=== PATIENT | male | born 1990 | race Caucasian/White ===

== ENCOUNTER → 2017-02-19 | Outpatient (REF) | payer MEDICAID ==
[2017-02-19 13:05] LABS: ALBUMIN 4.3 GM/DL (3.2-5.2); ALBUMIN/GLOBULIN RATIO 1.48 (1.00-1.93); ALKALINE PHOSPHATASE 57 U/L (45-117); ALT/SGPT 38 U/L (12-78); ANION GAP 8 MEQ/L (8-16); AST/SGOT 25 U/L (15-37); BILIRUBIN,TOTAL 0.5 MG/DL (0.2-1.0); BLOOD UREA NITROGEN 15 MG/DL (7-18); CALCIUM LEVEL 9.5 MG/DL (8.5-10.1); CARBON DIOXIDE LEVEL 27 MEQ/L (21-32); CHLORIDE LEVEL 102 MEQ/L (98-107); CHOLESTEROL LEVEL 226 MG/DL (<200); CREATININE FOR GFR 0.86 MG/DL (0.70-1.30); GLOMERULAR FILTRATION RATE > 60.0 (>60); GLUCOSE, FASTING 86 MG/DL (70-105); POTASSIUM SERUM 4.4 MEQ/L (3.5-5.1); SODIUM LEVEL 137 MEQ/L (136-145); TOTAL PROTEIN 7.2 GM/DL (6.4-8.2); TRIGLYCERIDES LEVEL 299 MG/DL (<150)
== END ==
LOC: M SFHCCLAY 08:26
PROVIDERS: ATTEND Family Medicine
DX: E78.2 Mixed hyperlipidemia (principal)

== ENCOUNTER → 2017-05-22 | Outpatient (REF) | payer OTHER | LOC: M LAB REF 08:51 | PROVIDERS: ATTEND Physician Assistant | DX: J02.9 Acute pharyngitis, unspecified (principal) ==

== ENCOUNTER → 2017-08-02 | Outpatient (REF) | payer MEDICAID ==
[2017-08-02 12:22] LABS: ALBUMIN 3.9 GM/DL (3.2-5.2); ALBUMIN/GLOBULIN RATIO 1.34 (1.00-1.93); ALKALINE PHOSPHATASE 50 U/L (45-117); ALT/SGPT 50 U/L (12-78); ANION GAP 6 MEQ/L (8-16); AST/SGOT 26 U/L (15-37); BILIRUBIN,TOTAL 0.4 MG/DL (0.2-1.0); BLOOD UREA NITROGEN 12 MG/DL (7-18); CALCIUM LEVEL 9.3 MG/DL (8.5-10.1); CARBON DIOXIDE LEVEL 29 MEQ/L (21-32); CHLORIDE LEVEL 105 MEQ/L (98-107); CHOLESTEROL LEVEL 239 MG/DL (<200); CREATININE FOR GFR 0.85 MG/DL (0.70-1.30); GLOMERULAR FILTRATION RATE > 60.0 (>60); GLUCOSE, FASTING 94 MG/DL (70-105); POTASSIUM SERUM 4.5 MEQ/L (3.5-5.1); SODIUM LEVEL 140 MEQ/L (136-145); TOTAL PROTEIN 6.8 GM/DL (6.4-8.2); TRIGLYCERIDES LEVEL 203 MG/DL (<150)
== END ==
LOC: M SFHCCLAY 07:10
PROVIDERS: ATTEND Family Medicine
DX: E78.2 Mixed hyperlipidemia (principal)

== ENCOUNTER → 2019-04-13 | Outpatient (REF) | payer MEDICAID ==
[2019-04-13 13:17] LABS: HEMOGLOBIN A1c 5.3 %
== END ==
LOC: M SFHCCLAY 07:14
PROVIDERS: ATTEND Family Medicine
DX: R73.01 Impaired fasting glucose (principal)

== ENCOUNTER → 2019-10-31 | Outpatient (CLI) | payer OTHER ==
--- NOTE | 2019-10-31 13:59 | REP ---
MRI LUMBAR SPINE WITHOUT CONTRAST: HISTORY: Back pain. Comparison radiographs are from July 19, 2016. TECHNIQUE: Sagittal and axial T1- and T2-weighted scans are acquired in the usual fashion with and without fat saturation. Sequences include spin echo, turbo spin-echo, and STIR imaging sequences. MRI FINDINGS: There is straightening of the normal lumbar lordosis. Lumbar vertebral body heights are preserved. No bony destructive lesion is seen. The tip of the conus medullaris is normal in position in appearance at L1. No extra vertebral abnormality is observed. Axial and sagittal images taken at L5-S1 demonstrate a left posterior focal disc protrusion which effaces the left ventral margin of the thecal sac and compresses the exiting S1 root. There is mild facet hypertrophy. No other finding at L5-S1. At L4-5, there is a broad-based disc bulge and a central focal disc protrusion, which along with developmentally short pedicles and ligamentum flavum hypertrophy, contribute to moderate central canal stenosis. This effaces the CSF signal from the thecal sac at L4-5. The mid line AP dimension of the thecal sac at L4-5 is only 5.5 mm. There is mild bilateral neural foraminal narrowing due to foraminal disc bulges which are present bilaterally associated spurring. At L3-4, there is moderate diffuse disc bulging producing a moderate degree of central canal stenosis in combination with developmentally short pedicles and some ligamentum flavum hypertrophy. Foraminal disc bulging is seen contributes to mild neural foraminal narrowing. The mid line AP dimension of the thecal sac at L3-4 is 6.8 mm. At L2-L3, there is a moderate degree of diffuse disc bulging as well compressing the ventral margin of the thecal sac and contributing to mild central canal stenosis. The midline AP dimension of the thecal sac at L2-3 measures 9 mm. There is no significant foraminal narrowing at L2-3. At L1-2, there is broad-based left posterior focal disc protrusion effacing the left ventral margin of the thecal sac. No significant canal stenosis is seen. No neural foraminal narrowing is seen. IMPRESSION: Diffuse degenerative disc disease and spondylosis changes. Multilevel spinal stenosis most pronounced at L4-5 and L3-4. Disc protrusions are present at L1-2, L4-5, and L5-S1. Electronically Signed by Brandon Rojas MD 10/31/2019 04:12 P
--- NOTE | 2019-10-31 14:02 | REP ---
MRI THORACIC SPINE WITHOUT CONTRAST: HISTORY: Back pain. No comparison MRI study. Comparison radiographs are from July 19, 2016. TECHNIQUE: Sagittal and axial T1- and T2-weighted scans are acquired in the usual fashion with and without fat saturation. Sequences include spin echo, turbo spin-echo, and STIR imaging sequences. MRI FINDINGS: Thoracic vertebral body heights are preserved. Alignment is normal. Cortical and medullary bone signal intensity are felt to be normal. Artifactual decreased T1- and T2 signal intensity are seen in the T10 vertebral body. No bony destructive lesion is appreciated. Thoracic cord is normal in coarse, caliber and signal intensity on T1- and T2-weighted scans. No neural foraminal or cord compressive lesion is appreciated. There is a right posterior disc protrusion at the T3-4 level, which flattens the right ventral margin of the thoracic cord. Disc bulging is seen on the right and T4-5. There is a small right posterolateral disc protrusion at T6-7. This flattens the right ventral margin of the thecal sac. There is a small central focal disc protrusion at T8-9 which indents the ventral margin of the cord. There is a right posterior focal disc protrusion at T9-T10 which flattens the right ventral margin of the cord. Diffuse disc bulging is seen at T10-11. IMPRESSION: Degenerative disc disease with multiple focal disc protrusions in the thoracic spine as above. Electronically Signed by Brandon Rojas MD 10/31/2019 04:13 P
== END ==
LOC: M RAD 11:00
PROVIDERS: ATTEND Family Medicine
DX: M54.5 Low back pain (principal)

== ENCOUNTER → 2019-11-17 | Outpatient (CLI) | payer OTHER, SELFPAY ==
[~2019-11-17] MED LIST: E-Z-GAS II EFFERVESCENT PACKET (SODIUM BICARB./CITRIC ACID/SIMETHICONE) As Ordered ONE; E-Z-HD 98% w/w 340GM SUSP BTL As Ordered ONE; E-Z-PAQUE 96% w/w SUSP 176GM BTL As Ordered ONE; OMEP40CA97 PO; ROBA750T4 PO; TIZA4CAP PO
--- NOTE | 2019-11-17 16:00 | REP ---
Examination Requested: Esophagram Barium Swallow Reason For Exam/Comment: Dysphasia Esophagram: The procedure was performed JOLLY Colón, under the direct supervision of Dr. Walter. The images were reviewed with Dr. Walter. A single PA chest x-ray is submitted as a philosophy faculty member film. The superior mediastinal structures are midline. The heart size is within normal limits. The lungs are clear. Liquid barium and gas producing granules were given in the erect position as well as liquid barium in the prone oblique position, in order to perform a double contrast esophagram examination. Oral and pharyngeal stages of the examination were unremarkable. Esophageal transport is efficient and there is no esophagitis, stricture, or mucosal ring noted. There is no hiatal hernia noted. Gastroesophageal reflux was not visualized throughout the course of the exam. Impression: 1. Unremarkable esophagram. 0.3 minutes of fluoroscopy time was utilized for this procedure. Some fluoroscopic images are performed with last image hold technology. These images require no additional radiation. Reviewed by JOLLY Laughlin 11/17/2019 12:44 P Electronically Signed by Cortez Walter MD 11/17/2019 03:51 P
== END ==
LOC: M RAD 09:04
PROVIDERS: ATTEND Nurse Practitioner
DX: R13.10 Dysphagia, unspecified (principal)

== ENCOUNTER 2019-11-26 12:04 | Day surgery (SDC) | payer OTHER ==
[~2019-11-26] VITALS: Ht 188 cm; Wt 99.8 kg
[~2019-11-26 12:04] MED LIST changes: -E-Z-GAS II EFFERVESCENT PACKET (SODIUM BICARB./CITRIC ACID/SIMETHICONE) As Ordered ONE; -E-Z-HD 98% w/w 340GM SUSP BTL As Ordered ONE; -E-Z-PAQUE 96% w/w SUSP 176GM BTL As Ordered ONE; +NS 1,000 ML IV ONE
[2019-11-26] MEDS ORDERED: fentaNYL 100 MCG/2 ML INJECTION (J3010) As Ordered ONE (12:48)
[2019-11-26] MEDS ORDERED: propofoL 200 MG/20 ML VIAL As Ordered ONE (12:48)
[2019-11-26] MEDS ORDERED: LIDOCAINE 2% INJ 100 MG/5 ML SDV (FOR ANES.) As Ordered ONE (12:48)
--- NOTE | 2019-11-26 13:38 | ROOR ---
Patient Name: Juan Busby Procedure Date: 11/26/2019 1:17 PM Date of : 1990 Age: 29 Room: [facility] Gender: Male Note Status: Finalized Procedure: Upper GI endoscopy Indications: Suspected esophageal reflux Providers: Elpidio Jeffries Jr, MD Referring MD: Lizbeth BUSCH DO Requesting Provider: Medicines: Propofol per Anesthesia Complications: No immediate complications. Procedure: Pre-Anesthesia Assessment: - Prior to the procedure, a History and Physical was performed, and patient medications and allergies were reviewed. The patient is competent. The risks and benefits of the procedure and the sedation options and risks were discussed with the patient. All questions were answered and informed consent was obtained. Patient identification and proposed procedure were verified by the physician and the nurse in the pre-procedure area and in the procedure room. Mental Status Examination: alert and oriented. Airway Examination: normal oropharyngeal airway and neck mobility. Respiratory Examination: clear to auscultation. CV Examination: normal. ASA Grade Assessment: II - A patient with mild systemic disease. After reviewing the risks and benefits, the patient was deemed in satisfactory condition to undergo the procedure. The anesthesia plan was to use moderate sedation / analgesia (conscious sedation). Immediately prior to administration of medications, the patient was re-assessed for adequacy to receive sedatives. The heart rate, respiratory rate, oxygen saturations, blood pressure, adequacy of pulmonary ventilation, and response to care were monitored throughout the procedure. The physical status of the patient was re-assessed after the procedure. The Endoscope was introduced through the mouth, and advanced to the second part of duodenum. The upper GI endoscopy was accomplished without difficulty. The patient tolerated the procedure well. Findings: The upper third of the esophagus, middle third of the esophagus and lower third of the esophagus were normal. The cardia, gastric fundus, gastric body, greater curvature of the stomach, lesser curvature of the stomach, gastric antrum, prepyloric region of the stomach and pylorus were normal. Biopsies were taken with a cold forceps for histology. The duodenal bulb, first portion of the duodenum and second portion of the duodenum were normal. Impression: - Normal upper third of esophagus, middle third of esophagus and lower third of esophagus. - Normal cardia, gastric fundus, gastric body, greater curvature of the stomach, lesser curvature of the stomach, antrum, prepyloric region of the stomach and pylorus. Biopsied. - Normal duodenal bulb, first portion of the duodenum and second portion of the duodenum. Recommendation: - Discharge patient to home (ambulatory). - Return to my office in 2 weeks. Elpidio Jeffries MD Elpidio Jeffries Jr, MD 11/26/2019 1:37:42 PM Electronically signed by Elpidio Jeffries Jr, MD Number of Addenda: 0 Note Initiated On: 11/26/2019 1:17 PM Estimated Blood Loss: Estimated blood loss: none.
[2019-11-26 14:00] VITALS: BP 129/60
== END 2019-11-26 14:02 | disposition home or self-care (01) ==
LOC: M OPP 12:04
PROVIDERS: ATTEND Surgery
DX: K31.89 Other diseases of stomach and duodenum (principal); K21.9 Gastro-esophageal reflux disease without esophagitis; Z79.899 Other long term (current) drug therapy; F17.210 Nicotine dependence, cigarettes, uncomplicated
CPT/HCPCS: 43239; 88305; J3010

== ENCOUNTER → 2020-04-06 | Outpatient (REF) | payer OTHER ==
[~2020-04-06] MED LIST changes: -NS 1,000 ML IV ONE
[2020-04-07 12:02] LABS: BLOOD UREA NITROGEN 12 MG/DL (7-18); CALCIUM LEVEL 9.4 MG/DL (8.5-10.1); CARBON DIOXIDE LEVEL 30 MEQ/L (21-32); CHLORIDE LEVEL 106 MEQ/L (98-107); CREATININE FOR GFR 0.78 MG/DL (0.70-1.30); GLOMERULAR FILTRATION RATE > 60.0 (>60); GLUCOSE, FASTING 85 MG/DL (70-100); POTASSIUM SERUM 4.4 MEQ/L (3.5-5.1); SODIUM LEVEL 138 MEQ/L (136-145)
== END ==
LOC: M SFHCCLAY 15:09
PROVIDERS: ATTEND Family Medicine
DX: R19.05 Periumbilic swelling, mass or lump (principal)

== ENCOUNTER → 2020-05-11 | Outpatient (CLI) | payer OTHER ==
[~2020-05-11] MED LIST changes: +GASTROGRAFIN SOLUTION 30ML (Q9963) As Ordered ONE; +ISOVUE-370 76% 100ML VIAL As Ordered ONE
--- NOTE | 2020-05-12 00:16 | REP ---
REASON FOR EXAM: Periumbilical mass. The only prior for comparison is 10/14/2010. CONTRAST: 100 mL [id number]-370. The lung bases are clear and unchanged. The liver, gallbladder, spleen, pancreas, adrenal glands, and kidneys are essentially unchanged. There is a small simple splenic cyst. The abdominal aorta and para-aortic regions are again seen to be within normal limits. Bowel loops and their mesenteries are again seen to be within normal limits. No free fluid or free air is seen in the abdomen or pelvis. There is no evidence of an intra-abdominal or intrapelvic mass or adenopathy. Bone window technique throughout the examination shows the osseous structures to be stable and intact. IMPRESSION: CT findings are within normal limits. There is no evidence of a mass, periumbilical or otherwise. Electronically Signed by Gutierrez Julien DO 05/12/2020 08:09 A
== END ==
LOC: M RAD 13:22
PROVIDERS: ATTEND Family Medicine
DX: R19.05 Periumbilic swelling, mass or lump (principal)
CPT/HCPCS: 74177; Q9963; Q9967

== ENCOUNTER → 2020-05-12 | Outpatient (REF) | payer OTHER ==
[~2020-05-12] MED LIST changes: -GASTROGRAFIN SOLUTION 30ML (Q9963) As Ordered ONE; -ISOVUE-370 76% 100ML VIAL As Ordered ONE
== END ==
LOC: M SFHCCLAY 14:54
PROVIDERS: ATTEND Family Medicine
DX: Z11.59 Encounter for screening for other viral diseases (principal); R51 Headache; R05 Cough; R68.83 Chills (without fever)

== ENCOUNTER → 2021-01-26 | Outpatient (REF) | payer OTHER ==
[2021-01-26 18:25] LABS: BLOOD UREA NITROGEN 12 MG/DL (7-18); CALCIUM LEVEL 9.3 MG/DL (8.5-10.1); CARBON DIOXIDE LEVEL 26 MEQ/L (21-32); CHLORIDE LEVEL 108 MEQ/L (98-107); CHOLESTEROL LEVEL 259 MG/DL (<200); CHOLESTEROL RISK RATIO 8.633 (<5); CREATININE FOR GFR 0.82 MG/DL (0.70-1.30); GLOMERULAR FILTRATION RATE > 60.0 (>60); GLUCOSE, FASTING 89 MG/DL (70-100); HDL CHOLESTEROL 30 MG/DL (>40); LDL CHOLESTEROL 190 MG/DL (<100); NON-HDL-C 229 MG/DL; POTASSIUM SERUM 4.7 MEQ/L (3.5-5.1); SODIUM LEVEL 138 MEQ/L (136-145); TRIGLYCERIDES LEVEL 196 MG/DL (<150)
== END ==
LOC: M SFHCCLAY 10:22
PROVIDERS: ATTEND Family Medicine
DX: Z00.00 Encounter for general adult medical examination without abnormal findings (principal); R73.01 Impaired fasting glucose; E78.2 Mixed hyperlipidemia

== ENCOUNTER → 2022-06-29 | Outpatient (REF) | payer OTHER ==
[~2022-06-29] MED LIST changes: +OMEP40CA4 PO; -OMEP40CA97 PO
== END ==
LOC: M SFHCCLAY 14:43
PROVIDERS: ATTEND Nurse Practitioner Family
DX: Z53.9 Procedure and treatment not carried out, unspecified reason (principal)

== ENCOUNTER → 2022-07-06 | Outpatient (REF) | payer OTHER ==
[2022-07-06 17:24] LABS: HEMATOCRIT 48.3 % (42.0-52.0); HEMOGLOBIN 16.5 g/dl (13.5-17.5); MEAN CORPUSCULAR HEMOGLOBIN 29.9 pg (27.0-33.0); MEAN CORPUSCULAR HGB CONC 34.2 g/dl (32.0-36.5); MEAN CORPUSCULAR VOLUME 87.7 fl (80.0-96.0); PLATELET COUNT, AUTOMATED 311 10^3/uL (150-450); RED BLOOD COUNT 5.51 10^6/uL (4.30-6.10); WHITE BLOOD COUNT 6.9 10^3/uL (4.0-10.0)
[2022-07-06 17:47] LABS: HEMOGLOBIN A1c 5.2 %
[2022-07-06 18:10] LABS: ALBUMIN 4.1 GM/DL (3.2-5.2); ALT/SGPT 49 U/L (12-78); BILIRUBIN,TOTAL 0.6 MG/DL (0.2-1.0); BLOOD UREA NITROGEN 14 MG/DL (7-18); CALCIUM LEVEL 9.3 MG/DL (8.5-10.1); CARBON DIOXIDE LEVEL 25 MEQ/L (21-32); CHLORIDE LEVEL 107 MEQ/L (98-107); CHOLESTEROL LEVEL 212 MG/DL (<200); CHOLESTEROL RISK RATIO 5.888 (<5); CREATININE FOR GFR 0.89 MG/DL (0.70-1.30); GLOMERULAR FILTRATION RATE > 60.0 (>60); GLUCOSE, FASTING 89 MG/DL (70-100); HDL CHOLESTEROL 36 MG/DL (>40); LDL CHOLESTEROL 159 MG/DL (<100); NON-HDL-C 176 MG/DL; POTASSIUM SERUM 4.6 MEQ/L (3.5-5.1); SODIUM LEVEL 136 MEQ/L (136-145); TOTAL PROTEIN 6.9 GM/DL (6.4-8.2); TRIGLYCERIDES LEVEL 85 MG/DL (<150)
== END ==
LOC: M SFHCCLAY 11:28
PROVIDERS: ATTEND Nurse Practitioner Family
DX: R10.9 Unspecified abdominal pain (principal); E78.2 Mixed hyperlipidemia

== ENCOUNTER → 2022-07-20 | Outpatient (CLI) | payer OTHER | LOC: M PAIN 13:00 | PROVIDERS: ATTEND Anesthesiology | DX: M79.18 Myalgia, other site (principal); M54.2 Cervicalgia; F17.210 Nicotine dependence, cigarettes, uncomplicated; R13.10 Dysphagia, unspecified; K21.9 Gastro-esophageal reflux disease without esophagitis; E78.2 Mixed hyperlipidemia; Z79.899 Other long term (current) drug therapy; Z88.8 Allergy status to other drugs, medicaments and biological substances ==

== ENCOUNTER → 2022-09-09 | Outpatient (CLI) | payer OTHER | LOC: M LABSMTC 10:59 | PROVIDERS: ATTEND Anesthesiology | DX: Z11.52 Encounter for screening for COVID-19 (principal) ==

== ENCOUNTER → 2022-09-19 | Outpatient (REF) | payer OTHER | LOC: M LAB REF 09:24 | PROVIDERS: ATTEND Surgery | DX: L72.3 Sebaceous cyst (principal) ==

== ENCOUNTER → 2022-09-23 | Outpatient (CLI) | payer OTHER | LOC: M LABSMTC 11:31 | PROVIDERS: ATTEND Anesthesiology | DX: Z01.812 Encounter for preprocedural laboratory examination (principal); Z11.52 Encounter for screening for COVID-19 ==

== ENCOUNTER → 2022-09-28 | Outpatient (CLI) | payer OTHER ==
[~2022-09-28] MED LIST changes: +BUPIVACAINE HCL 0.25% 10ML VIAL As Ordered ONE; +BUPIVACAINE HCL 0.25% 30ML VIAL As Ordered ONE; +TRIAMCINOLONE ACETONIDE SUSP 40MG/ML 1ML VIAL As Ordered ONE; +diazePAM 5MG TABLET As Ordered ONE; +oxyCODONE 5MG TAB As Ordered ONE
== END ==
LOC: M PAIN 15:30
PROVIDERS: ATTEND Anesthesiology
DX: M79.18 Myalgia, other site (principal); F17.210 Nicotine dependence, cigarettes, uncomplicated; R13.10 Dysphagia, unspecified; K21.9 Gastro-esophageal reflux disease without esophagitis; E78.2 Mixed hyperlipidemia; M54.9 Dorsalgia, unspecified; Z79.899 Other long term (current) drug therapy; Z88.8 Allergy status to other drugs, medicaments and biological substances
CPT/HCPCS: 20552; J3301

== ENCOUNTER → 2022-11-20 | Outpatient (CLI) | payer OTHER ==
[~2022-11-20] MED LIST changes: -BUPIVACAINE HCL 0.25% 10ML VIAL As Ordered ONE; -BUPIVACAINE HCL 0.25% 30ML VIAL As Ordered ONE; -TRIAMCINOLONE ACETONIDE SUSP 40MG/ML 1ML VIAL As Ordered ONE; -diazePAM 5MG TABLET As Ordered ONE; -oxyCODONE 5MG TAB As Ordered ONE
== END ==
LOC: M CLY 09:54
PROVIDERS: ATTEND Nurse Practitioner Family
DX: M54.59 Other low back pain (principal)

== ENCOUNTER → 2022-11-20 | Outpatient (REF) | payer OTHER ==
[2022-11-21 10:40] LABS: HEMATOCRIT 47.5 % (42.0-52.0); HEMOGLOBIN 16.2 g/dl (13.5-17.5); MEAN CORPUSCULAR HEMOGLOBIN 30.5 pg (27.0-33.0); MEAN CORPUSCULAR HGB CONC 34.1 g/dl (32.0-36.5); MEAN CORPUSCULAR VOLUME 89.5 fl (80.0-96.0); PLATELET COUNT, AUTOMATED 323 10^3/uL (150-450); RED BLOOD COUNT 5.31 10^6/uL (4.30-6.10)
[2022-11-21 11:44] LABS: FREE T4 1.28 NG/DL (0.89-1.76); THYROID STIMULATING HORMONE 1.864 uIU/ML (0.55-4.78)
== END ==
LOC: M SFHCCLAY 09:36
PROVIDERS: ATTEND Nurse Practitioner Family
DX: R07.9 Chest pain, unspecified (principal); M54.50 Low back pain, unspecified; G89.29 Other chronic pain; R53.83 Other fatigue

== ENCOUNTER → 2022-11-23 | Outpatient (REF) | payer OTHER ==
[2022-11-23 11:40] LABS: ALBUMIN 4.1 G/DL (3.2-5.2); ALKALINE PHOSPHATASE 58 U/L (46-116); ALT/SGPT 30 U/L (7.0-40); AST/SGOT 25 U/L (<34); BILIRUBIN,TOTAL 0.4 MG/DL (0.3-1.2); BLOOD UREA NITROGEN 13 MG/DL (9-23); CALCIUM LEVEL 9.5 MG/DL (8.5-10.1); CARBON DIOXIDE LEVEL 27 MMOL/L (20-31); CHLORIDE LEVEL 104 MMOL/L (98-107); CREATININE FOR GFR 0.75 MG/DL (0.70-1.30); GLOMERULAR FILTRATION RATE > 60.0 (>60); GLUCOSE, FASTING 93 MG/DL (60-100); POTASSIUM SERUM 4.4 MMOL/L (3.5-5.1); SODIUM LEVEL 137 MMOL/L (136-145); TOTAL PROTEIN 6.8 G/DL (5.7-8.2)
== END ==
LOC: M SFHCCLAY 07:44
PROVIDERS: ATTEND Nurse Practitioner Family
DX: R07.9 Chest pain, unspecified (principal); M54.50 Low back pain, unspecified; G89.29 Other chronic pain; R53.83 Other fatigue

== ENCOUNTER → 2022-12-07 | Outpatient (CLI) | payer OTHER | LOC: M PAIN 13:15 | PROVIDERS: ATTEND Anesthesiology | DX: M79.10 Myalgia, unspecified site (principal); M79.18 Myalgia, other site; M54.6 Pain in thoracic spine; F17.210 Nicotine dependence, cigarettes, uncomplicated; R13.10 Dysphagia, unspecified; K21.9 Gastro-esophageal reflux disease without esophagitis; E78.2 Mixed hyperlipidemia; Z79.899 Other long term (current) drug therapy; Z88.8 Allergy status to other drugs, medicaments and biological substances ==

== ENCOUNTER → 2023-01-16 | Outpatient (REF) | payer OTHER ==
[2023-01-16 17:55] LABS: HEMATOCRIT 47.3 % (42.0-52.0); HEMOGLOBIN 16.3 g/dl (13.5-17.5); MEAN CORPUSCULAR HEMOGLOBIN 30.6 pg (27.0-33.0); MEAN CORPUSCULAR HGB CONC 34.5 g/dl (32.0-36.5); MEAN CORPUSCULAR VOLUME 88.7 fl (80.0-96.0); PLATELET COUNT, AUTOMATED 309 10^3/uL (150-450); RED BLOOD COUNT 5.33 10^6/uL (4.30-6.10); WHITE BLOOD COUNT 7.6 10^3/uL (4.0-10.0)
[2023-01-16 18:25] LABS: ALBUMIN 4.2 G/DL (3.2-5.2); ALKALINE PHOSPHATASE 59 U/L (46-116); ALT/SGPT 31 U/L (7.0-40); AST/SGOT 23 U/L (<34); BILIRUBIN,TOTAL 0.5 MG/DL (0.3-1.2); BLOOD UREA NITROGEN 9 MG/DL (9-23); CALCIUM LEVEL 9.9 MG/DL (8.5-10.1); CARBON DIOXIDE LEVEL 25 MMOL/L (20-31); CHLORIDE LEVEL 106 MMOL/L (98-107); CREATININE FOR GFR 0.76 MG/DL (0.70-1.30); FREE T4 1.03 NG/DL (0.89-1.76); GLOMERULAR FILTRATION RATE > 60.0 (>60); GLUCOSE, FASTING 92 MG/DL (60-100); POTASSIUM SERUM 4.7 MMOL/L (3.5-5.1); SODIUM LEVEL 139 MMOL/L (136-145); TOTAL PROTEIN 6.8 G/DL (5.7-8.2)
[2023-01-16 18:26] LABS: THYROID STIMULATING HORMONE 1.157 uIU/ML (0.55-4.78)
== END ==
LOC: M SFHCCLAY 11:26
PROVIDERS: ATTEND Nurse Practitioner Family
DX: R07.9 Chest pain, unspecified (principal); R53.83 Other fatigue

== ENCOUNTER → 2023-01-18 | Outpatient (CLI) | payer OTHER ==
[~2023-01-18] MED LIST changes: +BUPIVACAINE HCL 0.25% 10ML VIAL As Ordered ONE; +BUPIVACAINE HCL 0.25% 30ML VIAL As Ordered ONE; +TRIAMCINOLONE ACETONIDE SUSP 40MG/ML 1ML VIAL As Ordered ONE; +diazePAM 5MG TABLET As Ordered ONE; +oxyCODONE 5MG TAB As Ordered ONE
== END ==
LOC: M PAIN 14:15
PROVIDERS: ATTEND Anesthesiology
DX: M79.18 Myalgia, other site (principal); F17.210 Nicotine dependence, cigarettes, uncomplicated; K21.9 Gastro-esophageal reflux disease without esophagitis; E78.2 Mixed hyperlipidemia; Z88.8 Allergy status to other drugs, medicaments and biological substances
CPT/HCPCS: 20552; J3301; S0020

== ENCOUNTER → 2023-01-18 | Outpatient (CLI) | payer OTHER ==
[~2023-01-18] MED LIST changes: -BUPIVACAINE HCL 0.25% 10ML VIAL As Ordered ONE; -BUPIVACAINE HCL 0.25% 30ML VIAL As Ordered ONE; -TRIAMCINOLONE ACETONIDE SUSP 40MG/ML 1ML VIAL As Ordered ONE; -diazePAM 5MG TABLET As Ordered ONE; -oxyCODONE 5MG TAB As Ordered ONE
== END ==
LOC: M LABSMTC 11:50
PROVIDERS: ATTEND Anesthesiology
DX: Z01.812 Encounter for preprocedural laboratory examination (principal)

== ENCOUNTER → 2023-03-06 | Outpatient (REF) | payer OTHER | LOC: M SFHCCLAY 08:18 | PROVIDERS: ATTEND Nurse Practitioner Family | DX: R61 Generalized hyperhidrosis (principal) ==

== ENCOUNTER → 2023-10-11 | Outpatient (CLI) | payer OTHER | LOC: M CLY 09:34 | PROVIDERS: ATTEND Nurse Practitioner Family | DX: S59.911A Unspecified injury of right forearm, initial encounter (principal); X58.XXXA Exposure to other specified factors, initial encounter; Y92.9 Unspecified place or not applicable ==

== ENCOUNTER → 2023-12-05 | Outpatient (CLI) | payer OTHER | LOC: M PLAIMG 15:50 | PROVIDERS: ATTEND Physician Assistant | DX: M54.15 Radiculopathy, thoracolumbar region (principal); M51.36 Other intervertebral disc degeneration, lumbar region; M48.061 Spinal stenosis, lumbar region without neurogenic claudication ==

== ENCOUNTER → 2024-04-28 | Outpatient (REF) | payer OTHER ==
[2024-04-28 17:29] LABS: BASO % 0.5 % (0.0-1.0); EOS # 0.2 10^3/uL (0.0-0.5); EOS % 2.4 % (0.0-3.0); HEMATOCRIT 42.9 % (42.0-52.0); HEMOGLOBIN 15.4 g/dl (13.5-17.5); LYMPH # 3.1 10^3/uL (1.5-5.0); LYMPH % 34.7 % (24.0-44.0); MEAN CORPUSCULAR HEMOGLOBIN 31.2 pg (27.0-33.0); MEAN CORPUSCULAR HGB CONC 35.9 g/dl (32.0-36.5); MEAN CORPUSCULAR VOLUME 86.8 fl (80.0-96.0); MONO # 0.6 10^3/uL (0.0-0.8); MONO % 7.1 % (2.0-8.0); NEUTROPHILS # 4.8 10^3/uL (1.5-8.5); NEUTROPHILS % 54.6 % (36.0-66.0); PLATELET COUNT, AUTOMATED 339 10^3/uL (150-450); RED BLOOD COUNT 4.94 10^6/uL (4.30-6.10); WHITE BLOOD COUNT 8.8 10^3/uL (4.0-10.0)
== END ==
LOC: M SFHCCLAY 14:42
PROVIDERS: ATTEND Nurse Practitioner Family
DX: D73.4 Cyst of spleen (principal)

== ENCOUNTER → 2024-05-29 | Outpatient (REF) | payer OTHER ==
[2024-05-29 17:33] LABS: POTASSIUM SERUM 4.5 MMOL/L (3.5-5.1)
== END ==
LOC: M LAB REF 16:31
PROVIDERS: ATTEND Orthopaedic Surgery
DX: Z01.818 Encounter for other preprocedural examination (principal); M48.062 Spinal stenosis, lumbar region with neurogenic claudication

== ENCOUNTER → 2024-06-02 | Outpatient (REF) | payer OTHER ==
[2024-06-02 16:22] LABS: BASO # 0.1 10^3/uL (0.0-0.2); BASO % 0.7 % (0.0-1.0); EOS # 0.3 10^3/uL (0.0-0.5); EOS % 3.5 % (0.0-3.0); HEMOGLOBIN 15.1 g/dl (13.5-17.5); LYMPH # 3.3 10^3/uL (1.5-5.0); LYMPH % 42.7 % (24.0-44.0); MEAN CORPUSCULAR HEMOGLOBIN 30.9 pg (27.0-33.0); MEAN CORPUSCULAR HGB CONC 35.1 g/dl (32.0-36.5); MEAN CORPUSCULAR VOLUME 88.1 fl (80.0-96.0); MONO # 0.6 10^3/uL (0.0-0.8); MONO % 8.4 % (2.0-8.0); NEUTROPHILS # 3.4 10^3/uL (1.5-8.5); NEUTROPHILS % 44.6 % (36.0-66.0); PLATELET COUNT, AUTOMATED 317 10^3/uL (150-450); RED BLOOD COUNT 4.88 10^6/uL (4.30-6.10); WHITE BLOOD COUNT 7.7 10^3/uL (4.0-10.0)
[2024-06-02 16:42] LABS: HEMOGLOBIN A1c 4.9 % (4.0-6.0)
[2024-06-02 16:47] LABS: ALKALINE PHOSPHATASE 60 U/L (46-116); ALT/SGPT 38 U/L (7.0-40); AST/SGOT 16 U/L (<34); BILIRUBIN,TOTAL 0.2 MG/DL (0.3-1.2); BLOOD UREA NITROGEN 12 MG/DL (9-23); CALCIUM LEVEL 9.6 MG/DL (8.5-10.1); CARBON DIOXIDE LEVEL 27 MMOL/L (20-31); CHLORIDE LEVEL 107 MMOL/L (98-107); CREATININE FOR GFR 0.69 MG/DL (0.70-1.30); GLOMERULAR FILTRATION RATE > 60.0 (>60); GLUCOSE, FASTING 85 MG/DL (60-100); POTASSIUM SERUM 4.6 MMOL/L (3.5-5.1); SODIUM LEVEL 135 MMOL/L (136-145); TOTAL PROTEIN 6.7 G/DL (5.7-8.2)
[2024-06-02 16:49] LABS: FREE T4 1.07 NG/DL (0.89-1.76); THYROID STIMULATING HORMONE 1.867 uIU/ML (0.55-4.78)
== END ==
LOC: M SFHCCLAY 11:43
PROVIDERS: ATTEND Nurse Practitioner Family
DX: Z01.818 Encounter for other preprocedural examination (principal); R63.5 Abnormal weight gain

== ENCOUNTER → 2024-08-12 | Outpatient (CLI) | payer OTHER | LOC: M RAD 15:55 | PROVIDERS: ATTEND Physician Assistant | DX: Z47.89 Encounter for other orthopedic aftercare (principal) ==

== ENCOUNTER → 2024-08-20 | Outpatient (CLI) | payer OTHER ==
[~2024-08-20] MED LIST changes: +PROHANCE 279.3MG/ML 15ML VIAL As Ordered ONE; +PROHANCE 279.3MG/ML 5ML VIAL As Ordered ONE
== END ==
LOC: M RAD 16:30
PROVIDERS: ATTEND Physician Assistant
DX: Z47.89 Encounter for other orthopedic aftercare (principal); M48.062 Spinal stenosis, lumbar region with neurogenic claudication
CPT/HCPCS: 72149; A9576

== ENCOUNTER → 2024-09-04 | Outpatient (REF) | payer OTHER ==
[~2024-09-04] MED LIST changes: -PROHANCE 279.3MG/ML 15ML VIAL As Ordered ONE; -PROHANCE 279.3MG/ML 5ML VIAL As Ordered ONE
[2024-09-04 14:58] LABS: ALBUMIN 3.7 G/DL (3.2-5.2); ALKALINE PHOSPHATASE 128 U/L (40-129); ALT/SGPT 55 U/L (7.0-40); AST/SGOT 19 U/L (<34); BASO # 0.1 10^3/uL (0.0-0.2); BASO % 0.6 % (0.0-1.0); BILIRUBIN,TOTAL 0.2 MG/DL (0.3-1.2); BLOOD UREA NITROGEN 11 MG/DL (9-23); CALCIUM LEVEL 10.2 MG/DL (8.5-10.1); CARBON DIOXIDE LEVEL 25 MMOL/L (20-31); CHLORIDE LEVEL 107 MMOL/L (98-107); CREATININE FOR GFR 0.63 MG/DL (0.70-1.30); EOS # 0.3 10^3/uL (0.0-0.5); EOS % 3.2 % (0.0-3.0); GLOMERULAR FILTRATION RATE > 60.0 (>60); GLUCOSE, FASTING 86 MG/DL (60-100); HEMATOCRIT 39.5 % (42.0-52.0); LYMPH # 2.9 10^3/uL (1.5-5.0); MEAN CORPUSCULAR HEMOGLOBIN 29.5 pg (27.0-33.0); MEAN CORPUSCULAR HGB CONC 32.9 g/dl (32.0-36.5); MEAN CORPUSCULAR VOLUME 89.8 fl (80.0-96.0); MONO # 0.7 10^3/uL (0.0-0.8); MONO % 6.5 % (2.0-8.0); NEUTROPHILS # 6.1 10^3/uL (1.5-8.5); NEUTROPHILS % 59.4 % (36.0-66.0); PLATELET COUNT, AUTOMATED 432 10^3/uL (150-450); POTASSIUM SERUM 4.5 MMOL/L (3.5-5.1); SODIUM LEVEL 141 MMOL/L (136-145); TOTAL PROTEIN 7.5 G/DL (5.7-8.2); WHITE BLOOD COUNT 10.3 10^3/uL (4.0-10.0)
[2024-09-04 15:06] LABS: ERYTHROCYTE SEDIMENTATION RATE 55 mm/hr (0-15)
== END ==
LOC: M SFHCCLAY 10:51
PROVIDERS: ATTEND Nurse Practitioner Family
DX: M46.46 Discitis, unspecified, lumbar region (principal)

== ENCOUNTER 2024-09-23 12:43 | Emergency (ER) | payer OTHER ==
[~2024-09-23] VITALS: Ht 188 cm; Wt 127.3 kg
[2024-09-23] MEDS ORDERED: ALBU8.5H (12:56)
[2024-09-23] MEDS ORDERED: CELE1CAP99 (12:56)
[2024-09-23] MEDS ORDERED: OXYC1TAB23 (12:56)
[2024-09-23] MEDS ORDERED: LOSA25TA13 (12:56)
[2024-09-23] MEDS ORDERED: GABA-1490 (12:56)
[2024-09-23] MEDS ORDERED: AMLO1TAB24 (12:56)
[2024-09-23] MEDS ORDERED: HYDR-3363 (12:57)
[2024-09-23] MEDS ORDERED: OMEP40CA5 (12:57)
[2024-09-23] MEDS ORDERED: SERT50TA29 (12:57)
[2024-09-23] MEDS ORDERED: CETI-24 (12:57)
[2024-09-23 13:28] LABS: BASO % 0.3 % (0.0-1.0); EOS # 0.1 10^3/uL (0.0-0.5); EOS % 0.6 % (0.0-3.0); HEMATOCRIT 41.8 % (42.0-52.0); HEMOGLOBIN 14.2 g/dl (13.5-17.5); LYMPH % 14.7 % (24.0-44.0); MEAN CORPUSCULAR VOLUME 88.4 fl (80.0-96.0); MONO # 0.9 10^3/uL (0.0-0.8); MONO % 6.7 % (2.0-8.0); NEUTROPHILS # 10.7 10^3/uL (1.5-8.5); NEUTROPHILS % 77.3 % (36.0-66.0); PLATELET COUNT, AUTOMATED 322 10^3/uL (150-450); RED BLOOD COUNT 4.73 10^6/uL (4.30-6.10); WHITE BLOOD COUNT 13.8 10^3/uL (4.0-10.0)
[2024-09-23 14:04] LABS: CK-MB VALUE MASS < 1.0 NG/ML (<3.6)
[2024-09-23 14:05] LABS: BLOOD UREA NITROGEN 7 MG/DL (9-23); CALCIUM LEVEL 10.2 MG/DL (8.5-10.1); CARBON DIOXIDE LEVEL 26 MMOL/L (20-31); CHLORIDE LEVEL 106 MMOL/L (98-107); CPK CREATINE PHOSPHOKINASE 106 U/L (46-171); CREATININE FOR GFR 0.67 MG/DL (0.70-1.30); GLOMERULAR FILTRATION RATE > 60.0 (>60); GLUCOSE, FASTING 98 MG/DL (60-100); MB/CK RELATIVE INDEX 0.94 (< OR =4); POTASSIUM SERUM 4.2 MMOL/L (3.5-5.1); SODIUM LEVEL 138 MMOL/L (136-145)
[2024-09-23 15:26] LABS: CK-MB VALUE MASS < 1.0 NG/ML (<3.6)
[2024-09-23 15:28] LABS: CPK CREATINE PHOSPHOKINASE 98 U/L (46-171); MB/CK RELATIVE INDEX 1.02 (< OR =4)
[2024-09-23] MEDS: MORPHINE 4 MG/ML 1ML VIAL IV ONE (15:37)
[2024-09-23] MEDS: MORPHINE 4 MG/ML 1ML VIAL IV PRN (16:59)
[2024-09-23] MEDS ORDERED: PROHANCE 279.3MG/ML 5ML VIAL As Ordered ONE (17:30)
[2024-09-23] MEDS ORDERED: PROHANCE 279.3MG/ML 15ML VIAL As Ordered ONE (17:30)
[2024-09-23] MEDS: HYDROMORPHONE HCL 0.5 MG/ 0.5 ML SYRINGE IV PRN (17:43)
[2024-09-23] MEDS: diazePAM 5MG TABLET PO ONE (18:14)
[2024-09-23] MEDS: HYDROMORPHONE HCL 0.5 MG/ 0.5 ML SYRINGE IV ONE (18:15)
[2024-09-23] MEDS: ALBUTEROL SULFATE 2.5MG/0.5ML INH NEB SOLN NEB ONE (19:58)
[2024-09-23] MEDS ORDERED: HYDROMORPHONE HCL 0.5 MG/ 0.5 ML SYRINGE IV PRN (20:10)
[2024-09-23] MEDS: CEFTAROLINE FOSAMIL 600 MG in DEXTROSE 5% (D5W) ADV/MINI-BAG 50 ML IV ONE (21:00)
[2024-09-23 22:20] VITALS: BP 135/66; TEMP 97.7; O2SAT 95
== END 2024-09-23 22:40 | disposition left against medical advice (07) ==
LOC: M ED 12:43
DX: J18.9 Pneumonia, unspecified organism (principal); M46.26 Osteomyelitis of vertebra, lumbar region; I10 Essential (primary) hypertension; F17.210 Nicotine dependence, cigarettes, uncomplicated; F12.10 Cannabis abuse, uncomplicated; Z79.51 Long term (current) use of inhaled steroids; Z79.899 Other long term (current) drug therapy; Z53.9 Procedure and treatment not carried out, unspecified reason
CPT/HCPCS: 71045; 74176; 80048; 81001; 82550; 82553; 84484; 85025; 87426; 93005; 94640; 96374; 96375; 96376; 99284; J0712; J1171

== ENCOUNTER → 2024-10-01 | Outpatient (CLI) | payer OTHER ==
[~2024-10-01] MED LIST changes: +ALBU8.5H; +AMLO1TAB24; +CELE1CAP99; +CETI-24; +GABA-1490; +HYDR-3363; +LOSA25TA13; +OMEP40CA5; +OXYC1TAB23; +SERT50TA29
== END ==
LOC: M CLY 14:14
PROVIDERS: ATTEND Nurse Practitioner Family
DX: J18.9 Pneumonia, unspecified organism (principal)

== ENCOUNTER → 2024-10-01 | Outpatient (REF) | payer OTHER ==
[2024-10-01 17:05] LABS: BASO # 0.1 10^3/uL (0.0-0.2); BASO % 0.7 % (0.0-1.0); EOS # 0.3 10^3/uL (0.0-0.5); EOS % 4.4 % (0.0-3.0); HEMATOCRIT 40.1 % (42.0-52.0); HEMOGLOBIN 13.2 g/dl (13.5-17.5); LYMPH # 2.3 10^3/uL (1.5-5.0); LYMPH % 31.2 % (24.0-44.0); MEAN CORPUSCULAR HEMOGLOBIN 29.1 pg (27.0-33.0); MEAN CORPUSCULAR HGB CONC 32.9 g/dl (32.0-36.5); MEAN CORPUSCULAR VOLUME 88.5 fl (80.0-96.0); MONO # 0.7 10^3/uL (0.0-0.8); MONO % 8.8 % (2.0-8.0); NEUTROPHILS % 54.2 % (36.0-66.0); PLATELET COUNT, AUTOMATED 437 10^3/uL (150-450); RED BLOOD COUNT 4.53 10^6/uL (4.30-6.10); WHITE BLOOD COUNT 7.5 10^3/uL (4.0-10.0)
[2024-10-01 17:12] LABS: ALBUMIN 3.5 G/DL (3.2-5.2); ALKALINE PHOSPHATASE 99 U/L (40-129); ALT/SGPT 24 U/L (7.0-40); AST/SGOT 9 U/L (<34); BILIRUBIN,TOTAL < 0.2 MG/DL (0.3-1.2); BLOOD UREA NITROGEN 11 MG/DL (9-23); CALCIUM LEVEL 10.3 MG/DL (8.5-10.1); CARBON DIOXIDE LEVEL 25 MMOL/L (20-31); CHLORIDE LEVEL 105 MMOL/L (98-107); CREATININE FOR GFR 0.73 MG/DL (0.70-1.30); GLOMERULAR FILTRATION RATE > 60.0 (>60); GLUCOSE, FASTING 84 MG/DL (60-100); POTASSIUM SERUM 4.6 MMOL/L (3.5-5.1); SODIUM LEVEL 141 MMOL/L (136-145); TOTAL PROTEIN 7.3 G/DL (5.7-8.2)
== END ==
LOC: M SFHCCLAY 13:29
PROVIDERS: ATTEND Nurse Practitioner Family
DX: J18.9 Pneumonia, unspecified organism (principal); R07.9 Chest pain, unspecified

== ENCOUNTER → 2024-11-09 | Outpatient (CLI) | payer OTHER ==
[2024-11-09 15:31] LABS: BASO # 0.1 10^3/uL (0.0-0.2); BASO % 0.8 % (0.0-1.0); EOS % 14.1 % (0.0-3.0); HEMATOCRIT 43.5 % (42.0-52.0); HEMOGLOBIN 14.9 g/dl (13.5-17.5); LYMPH # 2.5 10^3/uL (1.5-5.0); LYMPH % 33.9 % (24.0-44.0); MEAN CORPUSCULAR HEMOGLOBIN 29.3 pg (27.0-33.0); MEAN CORPUSCULAR HGB CONC 34.3 g/dl (32.0-36.5); MEAN CORPUSCULAR VOLUME 85.6 fl (80.0-96.0); MONO # 0.5 10^3/uL (0.0-0.8); MONO % 6.6 % (2.0-8.0); NEUTROPHILS # 3.2 10^3/uL (1.5-8.5); NEUTROPHILS % 43.9 % (36.0-66.0); PLATELET COUNT, AUTOMATED 338 10^3/uL (150-450); RED BLOOD COUNT 5.08 10^6/uL (4.30-6.10); WHITE BLOOD COUNT 7.3 10^3/uL (4.0-10.0)
[2024-11-09 15:38] LABS: ERYTHROCYTE SEDIMENTATION RATE 23 mm/hr (0-15)
== END ==
LOC: M PLALAB 12:39
PROVIDERS: ATTEND Internal Medicine Infectious Disease
DX: M46.46 Discitis, unspecified, lumbar region (principal)

== ENCOUNTER → 2024-12-24 | Outpatient (REF) | payer OTHER ==
[2024-12-24 19:07] LABS: BASO % 0.6 % (0.0-1.0); EOS # 0.2 10^3/uL (0.0-0.5); EOS % 3.5 % (0.0-3.0); HEMATOCRIT 45.3 % (42.0-52.0); HEMOGLOBIN 15.5 g/dl (13.5-17.5); LYMPH # 2.3 10^3/uL (1.5-5.0); LYMPH % 34.7 % (24.0-44.0); MEAN CORPUSCULAR HEMOGLOBIN 29.6 pg (27.0-33.0); MEAN CORPUSCULAR HGB CONC 34.2 g/dl (32.0-36.5); MEAN CORPUSCULAR VOLUME 86.6 fl (80.0-96.0); MONO # 0.6 10^3/uL (0.0-0.8); MONO % 8.5 % (2.0-8.0); NEUTROPHILS # 3.4 10^3/uL (1.5-8.5); NEUTROPHILS % 52.2 % (36.0-66.0); PLATELET COUNT, AUTOMATED 302 10^3/uL (150-450); RED BLOOD COUNT 5.23 10^6/uL (4.30-6.10); WHITE BLOOD COUNT 6.6 10^3/uL (4.0-10.0)
[2024-12-24 19:11] LABS: FREE T4 1.22 NG/DL (0.89-1.76)
[2024-12-24 19:15] LABS: ALBUMIN 4.2 G/DL (3.2-5.2); ALKALINE PHOSPHATASE 85 U/L (40-129); ALT/SGPT 50 U/L (7.0-40); AST/SGOT 16 U/L (<34); BILIRUBIN,TOTAL 0.3 MG/DL (0.3-1.2); BLOOD UREA NITROGEN 10 MG/DL (9-23); CALCIUM LEVEL 9.6 MG/DL (8.5-10.1); CARBON DIOXIDE LEVEL 23 MMOL/L (20-31); CHLORIDE LEVEL 110 MMOL/L (98-107); CHOLESTEROL LEVEL 323 MG/DL (<200); CHOLESTEROL RISK RATIO 9.84 (<5); CREATININE FOR GFR 0.69 MG/DL (0.70-1.30); GLOMERULAR FILTRATION RATE > 60.0 (>60); GLUCOSE, FASTING 99 MG/DL (60-100); HDL CHOLESTEROL 32.8 MG/DL (>40); LDL CHOLESTEROL 220.2 MG/DL (<100); NON-HDL-C 290.2 MG/DL; POTASSIUM SERUM 4.7 MMOL/L (3.5-5.1); SODIUM LEVEL 140 MMOL/L (136-145); TOTAL PROTEIN 7.4 G/DL (5.7-8.2); TRIGLYCERIDES LEVEL 350 MG/DL (<150)
[2024-12-24 19:16] LABS: THYROID STIMULATING HORMONE 0.793 uIU/ML (0.55-4.78)
[2024-12-24 20:12] LABS: HEMOGLOBIN A1c 5.1 % (4.0-6.0)
== END ==
LOC: M SFHCCLAY 13:42
PROVIDERS: ATTEND Nurse Practitioner Family
DX: F41.9 Anxiety disorder, unspecified (principal); M51.362 Other intervertebral disc degeneration, lumbar region with discogenic back pain and lower extremity pain; R42 Dizziness and giddiness; H93.13 Tinnitus, bilateral; R63.5 Abnormal weight gain; I10 Essential (primary) hypertension; K21.9 Gastro-esophageal reflux disease without esophagitis; J30.9 Allergic rhinitis, unspecified

== ENCOUNTER → 2025-02-17 | Outpatient (CLI) | payer OTHER ==
[~2025-02-17] MED LIST changes: +PROHANCE 279.3MG/ML 15ML VIAL ONE; +PROHANCE 279.3MG/ML 5ML VIAL ONE
== END ==
LOC: M PLAIMG 15:33
PROVIDERS: ATTEND Otolaryngology
DX: H90.3 Sensorineural hearing loss, bilateral (principal)

== ENCOUNTER → 2025-06-07 | Outpatient (REF) | payer OTHER ==
[~2025-06-07] MED LIST changes: +ACET-897 PO; -AMLO1TAB24; +AMLO1TAB24 PO; -GABA-1490; +GABA-1490 PO; -HYDR-3363; +HYDR-3363 PO; -LOSA25TA13; +LOSA25TA13 PO; +MELO15TA28 PO; +METH-1164 PO; +PARO20TA3 PO; -PROHANCE 279.3MG/ML 15ML VIAL ONE; -PROHANCE 279.3MG/ML 5ML VIAL ONE
== END ==
LOC: M LAB REF 17:02
PROVIDERS: ATTEND Internal Medicine Gastroenterology
DX: R19.7 Diarrhea, unspecified (principal)

== ENCOUNTER 2025-06-11 09:29 | Day surgery (SDC) | payer OTHER ==
[~2025-06-11] VITALS: Ht 188 cm; Wt 125.6 kg
[~2025-06-11 09:29] MED LIST changes: +ceFAZolin SOD 2 GM IV ONCE IV ONE
[2025-06-11] MEDS ORDERED: ONDANSETRON 4MG 2ML VIAL As Ordered ONE (10:00)
[2025-06-11] MEDS ORDERED: dexAMETHasone 4 MG/ML 1 ML VIAL As Ordered ONE (10:00)
[2025-06-11] MEDS ORDERED: LIDOCAINE 2% 100 MG/5 ML SDV (FOR ANES.) As Ordered ONE (10:01)
[2025-06-11] MEDS ORDERED: ROCURONIUM BROMIDE 50MG/5ML VIAL As Ordered ONE (10:01)
[2025-06-11] MEDS ORDERED: MIDAZOLAM INJ 2 MG/2 ML VIAL As Ordered ONE (10:04)
[2025-06-11] MEDS: ceFAZolin SOD 3 GM in DEXTROSE 5% (D5W) MINI-BAG PLU 1... IV ONE (10:30)
[2025-06-11] MEDS ORDERED: ACETAMINOPHEN 1000MG/100ML IV BAG As Ordered ONE (11:01)
[2025-06-11] MEDS ORDERED: KETOROLAC 30 MG/ML 1 ML VIAL As Ordered ONE (11:01)
[2025-06-11] MEDS ORDERED: SUGAMMADEX SODIUM 500 MG/5 ML VIAL As Ordered ONE (11:32)
[2025-06-11] MEDS ORDERED: LR 1,000 ML IV SCH (11:45)
[2025-06-11] MEDS: HYDROMORPHONE HCL 0.5 MG/0.5 ML SYRINGE IV PRN (12:11)
[2025-06-11] MEDS: ONDANSETRON 4MG 2ML VIAL IV PRN (12:12)
[2025-06-11 12:42] VITALS: BP 123/54; TEMP 96.9
[2025-06-11 13:08] VITALS: O2SAT 98
== END 2025-06-11 13:15 | disposition home or self-care (01) ==
LOC: M SDC 09:29
PROVIDERS: ATTEND Surgery
DX: K80.10 Calculus of gallbladder with chronic cholecystitis without obstruction (principal); I10 Essential (primary) hypertension; K76.0 Fatty (change of) liver, not elsewhere classified; Z79.899 Other long term (current) drug therapy; F17.210 Nicotine dependence, cigarettes, uncomplicated; G62.9 Polyneuropathy, unspecified; K21.9 Gastro-esophageal reflux disease without esophagitis
CPT/HCPCS: 47562; 88304; J0131; J0665; J0688; J1100; J1171; J1885; J2250; J2405; J3010

== ENCOUNTER → 2025-07-22 | Outpatient (REF) | payer OTHER ==
[~2025-07-22] MED LIST changes: -ceFAZolin SOD 2 GM IV ONCE IV ONE
[2025-07-22 18:28] LABS: ALT/SGPT 41 U/L (7.0-40); AST/SGOT 22 U/L (<34); CALCIUM LEVEL 9.4 MG/DL (8.5-10.1); CARBON DIOXIDE LEVEL 23 MMOL/L (20-31); CHLORIDE LEVEL 112 MMOL/L (98-107); CHOLESTEROL LEVEL 250 MG/DL (<200); CHOLESTEROL RISK RATIO 9.05 (<5); CREATININE FOR GFR 0.83 MG/DL (0.70-1.30); GLOMERULAR FILTRATION RATE > 90.0 (>60); NON-HDL-C 222.4 MG/DL; POTASSIUM SERUM 4.6 MMOL/L (3.5-5.1); SODIUM LEVEL 141 MMOL/L (136-145); TRIGLYCERIDES LEVEL 416 MG/DL (<150)
[2025-07-22 19:28] LABS: ESTIMATED AVERAGE GLUCOSE 103.0 MG/DL (60-110)
== END ==
LOC: M SFHCCLAY 14:03
PROVIDERS: ATTEND Nurse Practitioner Family
DX: F41.9 Anxiety disorder, unspecified (principal); M51.362 Other intervertebral disc degeneration, lumbar region with discogenic back pain and lower extremity pain; H93.13 Tinnitus, bilateral; I10 Essential (primary) hypertension; K21.9 Gastro-esophageal reflux disease without esophagitis

== ENCOUNTER → 2025-08-12 | Outpatient (CLI) | payer OTHER | LOC: M CLY 13:22 | PROVIDERS: ATTEND Nurse Practitioner Family | DX: R05.3 Chronic cough (principal) ==

== ENCOUNTER → 2025-10-01 | Outpatient (CLI) | payer OTHER | LOC: M CLY 15:04 | PROVIDERS: ATTEND Nurse Practitioner Family | DX: M25.522 Pain in left elbow (principal) ==